=== PATIENT | female | born 1995 | race American Indian/Alaskan Native ===

== ENCOUNTER 2021-06-11 14:53 | Emergency (ER) | payer MEDICAID, OTHER ==
[2021-06-11 15:27] VITALS: BP 122/41
[2021-06-11] MEDS ORDERED: FAMOTIDINE 20 MG/2 ML INJ IV ONE (15:37)
[2021-06-11] MEDS ORDERED: MORPHINE 2 MG/1 ML INJ IV ONE (15:37)
[2021-06-11] MEDS ORDERED: ONDANSETRON 4 MG/2 ML INJ IV ONE (15:37)
[2021-06-11] MEDS ORDERED: SODIUM CHLORIDE 0.9% 1000 ML 1,000 ML IV ONE (15:38)
[2021-06-11 16:17] LABS: Basophils % (Auto) 0.3 % (0.0-1.8); Hematocrit 37.4 % (30.3-42.9); Hemoglobin 12.5 gm/dl (10.1-14.3); Lymphocytes # (Auto) 1.3 K/mm3 (1.2-5.4); Lymphocytes % (Auto) 10.7 % (13.4-35.0); Mean Corpuscular HGB Conc 33 % (30-34); Mean Corpuscular Volume 97 fl (79-97); Monocytes # (Auto) 0.3 K/mm3 (0.0-0.8); Monocytes % (Auto) 2.7 % (0.0-7.3); Platelet Count 251 K/mm3 (140-440); Red Blood Count 3.86 M/mm3 (3.65-5.03); Red Cell Distribution Width 12.8 % (13.2-15.2)
[2021-06-11 16:27] LABS: Alanine Aminotransferase 27 units/L (7-56); Albumin 4.7 g/dL (3.9-5); Blood Urea Nitrogen 15 mg/dL (7-17); Calcium 9.4 mg/dL (8.4-10.2); Hemolysis Index 10
[2021-06-11 16:32] LABS: BUN/Creatinine Ratio 25
[2021-06-11] MEDS ORDERED: KETOROLAC 30 MG/1 ML INJ IV ONE (16:53)
[2021-06-11] MEDS ORDERED: DICYCLOMINE 20 MG/2 ML INJ IM ONE (17:03)
--- NOTE | 2021-06-11 18:01 | Cat Scan Report ---
CT ABDOMEN AND PELVIS WITH CONTRAST INDICATION / CLINICAL INFORMATION: abdominal pain, N/V. TECHNIQUE: Axial CT images were obtained through the abdomen and pelvis after 100 cc of Omnipaque [address] scans at this location are performed using CT dose reduction for ALARA by means of automated exposure control. COMPARISON: 07/12/2018 FINDINGS: LOWER CHEST: No significant abnormality. AORTA / ARTERIES: No significant abnormality. IVC / VEINS: No significant abnormality. LYMPH NODES: No significant adenopathy. COLON: No significant abnormality. APPENDIX: No significant abnormality. STOMACH / SMALL BOWEL: No significant abnormality. PERITONEUM: Trace free fluid within the pelvis, likely physiologic, given patient's age. No free air. No fluid collection. LIVER: Mild fatty infiltration about the falciform ligament. Periportal edema likely related to fluid resuscitation. GALLBLADDER: No significant abnormality. BILE DUCTS: No significant abnormality. PANCREAS: No significant abnormality. SPLEEN: No significant abnormality. ADRENALS: No significant abnormality. RIGHT KIDNEY / URETER: No significant abnormality. LEFT KIDNEY / URETER: No significant abnormality. URINARY BLADDER: No significant abnormality. REPRODUCTIVE ORGANS: No significant abnormality. SKELETAL SYSTEM: No significant abnormality. ADDITIONAL FINDINGS: None. IMPRESSION: 1. No CT findings to explain symptomatology. Signer Name: Aydin Garibay DO Signed: 06/11/2021 5:57 PM Workstation Name: [id number]
--- NOTE | 2021-06-11 20:16 | Emergency Department Report ---
ED N/V/D HPI - General Chief complaint: Nausea/Vomiting/Diarrhea Stated complaint: ABD PAIN/VOMITING/DIARRHEA Source: patient Mode of arrival: Ambulatory Limitations: No Limitations - History of Present Illness Initial comments: Patient is a 25-year-old -[place] female with no past medical history who presents to the ED with complaint of acute onset persistent intractable nausea and vomiting, diffuse abdominal pain for the last 3 days, worse in the last 12 hours. Patient states that she has not been able to keep anything down in the last 12 hours because of intractable nausea and vomiting. Patient states that no one else at home is had similar symptoms. Patient denies dizziness, syncope, chest pain, hematemesis, hematochezia, diarrhea, dysuria, urinary frequency and urgency, shortness of breath, headache, sore throat, vaginal bleeding or vaginal discharge. MD complaint: nausea, vomiting, abdominal pain -: Sudden, days(s) (3) Description of Vomiting: food contents, watery, bilious Associated Abdominal Pain: Yes (Diffuse) Location: diffuse Radiation: none Severity: severe Pain Scale: 7 Quality: cramping, aching, sharp Consistency: constant Improves with: none Worsens with: vomiting Context: possible food poisoning Associated Symptoms: denies other symptoms, loss of appetite, malaise, nausea/vomiting. denies: myalgias, chest pain, cough, diaphoresis, fever/chills, headaches, rash, dysuria, shortness of breath, syncope, weakness, other - Related Data Previous Rx's Medication Instructions Recorded Last Taken Type Dicyclomine [Bentyl] 10 mg PO BID #20 capsule 07/12/18 Unknown Rx Famotidine [Pepcid] 10 mg PO BID #30 tablet 07/12/18 Unknown Rx Ondansetron [Zofran ODT TAB] 8 mg PO Q12HR #30 tab.rapdis 07/12/18 Unknown Rx Dicyclomine [Bentyl] 20 mg PO Q6H PRN #30 tablet 06/11/21 Unknown Rx Famotidine [Pepcid] 20 mg PO BID #30 tablet 06/11/21 Unknown Rx Ondansetron [Zofran Odt] 4 mg PO Q6HR PRN #20 tab.rapdis 06/11/21 Unknown Rx Allergies Allergy/AdvReac Type Severity Reaction Status Date / Time No Known Allergies Allergy Verified 07/12/18 11:51 ED Review of Systems ROS: Stated complaint: ABD PAIN/VOMITING/DIARRHEA Other details as noted in HPI Constitutional: denies: chills, fever Eyes: denies: eye pain, eye discharge, vision change ENT: denies: ear pain, throat pain Respiratory: denies: cough, shortness of breath, wheezing Cardiovascular: denies: chest pain, palpitations Endocrine: no symptoms reported Gastrointestinal: abdominal pain, nausea, vomiting. denies: diarrhea Genitourinary: denies: urgency, dysuria, discharge Musculoskeletal: denies: back pain, joint swelling, arthralgia Skin: denies: rash, lesions Neurological: denies: headache, weakness, paresthesias Psychiatric: denies: anxiety, depression Hematological/Lymphatic: denies: easy bleeding, easy bruising ED Past Medical Hx - Past Medical History Hx Asthma: Yes - Social History Smoking Status: Current Every Day Smoker Substance Use Type: Alcohol - Medications Home Medications: Home Medications Medication Instructions Recorded Confirmed Last Taken Type Dicyclomine [Bentyl] 10 mg PO BID #20 capsule 07/12/18 Unknown Rx Famotidine [Pepcid] 10 mg PO BID #30 tablet 07/12/18 Unknown Rx Ondansetron [Zofran ODT TAB] 8 mg PO Q12HR #30 tab.rapdis 07/12/18 Unknown Rx Dicyclomine [Bentyl] 20 mg PO Q6H PRN #30 tablet 06/11/21 Unknown Rx Famotidine [Pepcid] 20 mg PO BID #30 tablet 06/11/21 Unknown Rx Ondansetron [Zofran Odt] 4 mg PO Q6HR PRN #20 tab.rapdis 06/11/21 Unknown Rx ED Physical Exam - General Limitations: No Limitations General appearance: alert, in no apparent distress - Head Head exam: Present: atraumatic, normocephalic, normal inspection - Eye Eye exam: Present: normal appearance, PERRL, EOMI Pupils: Present: normal accommodation - ENT ENT exam: Present: normal exam, normal orophraynx, mucous membranes moist, TM's normal bilaterally, normal external ear exam - Neck Neck exam: Present: normal inspection, full ROM - Respiratory Respiratory exam: Present: normal lung sounds bilaterally. Absent: respiratory distress, wheezes, rales, stridor, chest wall tenderness, accessory muscle use - Cardiovascular Cardiovascular Exam: Present: regular rate, normal rhythm, normal heart sounds. Absent: systolic murmur, diastolic murmur, rubs, gallop - GI/Abdominal GI/Abdominal exam: Present: soft, tenderness (Palpable diffuse abdominal tenderness), normal bowel sounds, hyperactive bowel sounds. Absent: guarding, rebound - Extremities Exam Extremities exam: Present: normal inspection, full ROM, normal capillary refill - Back Exam Back exam: Present: normal inspection, full ROM. Absent: tenderness, CVA tenderness (R), CVA tenderness (L), muscle spasm, paraspinal tenderness, vertebral tenderness - Neurological Exam Neurological exam: Present: alert, oriented X3, CN II-XII intact, normal gait, reflexes normal - Psychiatric Psychiatric exam: Present: normal affect, normal mood - Skin Skin exam: Present: warm, dry, intact, normal color. Absent: rash ED Course Vital Signs 06/11/21 15:26 Temperature 98.3 F Pulse Rate 88 Respiratory 20 Rate Blood Pressure 122/41 [Right] O2 Sat by Pulse 100 Oximetry ED Medical Decision Making - Lab Data Result diagrams: 06/11/21 15:46 06/11/21 15:46 - Radiology Data [facility] [address] [place] [address] Cat Scan Report Signed Patient: PAULETTE JOHNSON MR#: [id number] : 1995 Acct:[id number] Age/Sex: 25 / F ADM Date: 06/11/21 Loc: ED Attending Dr: Ordering Physician: JC JOYCE Date of Service: 06/11/21 Procedure(s): CT abdomen pelvis w con Accession Number(s): [id number] cc: JC JOYCE CT ABDOMEN AND PELVIS WITH CONTRAST INDICATION / CLINICAL INFORMATION: abdominal pain, N/V. TECHNIQUE: Axial CT images were obtained through the abdomen and pelvis after 100 cc of Omnipaque [address] scans at this location are performed using CT dose reduction for ALARA by means of automated exposure control. COMPARISON: 07/12/2018 FINDINGS: LOWER CHEST: No significant abnormality. AORTA / ARTERIES: No significant abnormality. IVC / VEINS: No significant abnormality. LYMPH NODES: No significant adenopathy. COLON: No significant abnormality. APPENDIX: No significant abnormality. STOMACH / SMALL BOWEL: No significant abnormality. PERITONEUM: Trace free fluid within the pelvis, likely physiologic, given patient's age. No free air. No fluid collection. LIVER: Mild fatty infiltration about the falciform ligament. Periportal edema likely related to fluid resuscitation. GALLBLADDER: No significant abnormality. BILE DUCTS: No significant abnormality. PANCREAS: No significant abnormality. SPLEEN: No significant abnormality. ADRENALS: No significant abnormality. RIGHT KIDNEY / URETER: No significant abnormality. LEFT KIDNEY / URETER: No significant abnormality. URINARY BLADDER: No significant abnormality. REPRODUCTIVE ORGANS: No significant abnormality. SKELETAL SYSTEM: No significant abnormality. ADDITIONAL FINDINGS: None. IMPRESSION: 1. No CT findings to explain symptomatology. Signer Name: Aydin Garibay DO Signed: 06/11/2021 5:57 PM Workstation Name: [id number] Transcribed By: ESSENCE Dictated By: AYDIN GARIBAY DO Electronically Authenticated By: AYDIN GARIBAY DO Signed Date/Time: 06/11/211756 DD/ 50 TD/TT: - Medical Decision Making This is a 25-year-old -[place] female with no past medical history who presents to the ED with complaint of acute onset persistent intractable nausea and vomiting, diffuse abdominal pain for the last 3 days, worse in the last 12 hours. Patient states that she has not been able to keep anything down in the last 12 hours because of intractable nausea and vomiting. Patient states that no one else at home is had similar symptoms. In the ED, patient is alert and oriented x3 and is not in any distress. Patient is hemodynamically stable. Patient was treated for nausea and vomiting and pain, also given the normal saline 1 L IV bolus x1 as well as antacids. Lab test results were reviewed and showed acute leukocytosis of 12,000 likely due to intractable nausea and vomiting. The rest of the lab test results are nonactionable. Abdomen pelvis CT scan with contrast showed no acute abnormalities. On reevaluation, patient's nausea and vomiting resolved medication and patient passed oral fluid challenge in the ED. Patient was discharged home on medications and advised to maintain a clear liquid diet for 1224 hrs., take medication as advised and follow-up with her primary care physician in 3 to 5 days for reevaluation or return to the ED immediately if symptoms get worse. - Differential Diagnosis Gastroenteritis; GERD; gastritis; appendicitis; UTI; dehydration Critical care attestation.: If time is entered above; I have spent that time in minutes in the direct care of this critically ill patient, excluding procedure time. ED Disposition Clinical Impression: Nausea and vomiting in adult patient, Viral gastroenteritis, Abdominal pain in female Disposition: HOME / SELF CARE / HOMELESS Is pt being admited?: No Does the pt Need Aspirin: No Condition: Stable Instructions: Viral Gastroenteritis, Adult, [id number], Nausea and Vomiting, Adult, [id number], Abdominal Pain, Adult, [id number] Additional Instructions: All lab test results are reviewed and are all nonactionable. Abdomen pelvis CT scan with contrast showed no acute abnormalities. Therefore maintain a clear liquid diet for 12 to 24 hours, drink plenty of fluids and follow-up with your primary care physician in 7 to 10 days for reevaluation. Return to the ED immediately if symptoms get worse. Prescriptions: Dicyclomine [Bentyl] 20 mg PO Q6H PRN #30 tablet PRN Reason: abdominal pain Famotidine [Pepcid] 20 mg PO BID #30 tablet Ondansetron [Zofran Odt] 4 mg PO Q6HR PRN #20 tab.rapdis PRN Reason: Nausea Referrals: [facility] [Provider Group] - 7-10 days Time of Disposition: 20:15 Print Language: COMORAN
[2021-06-11 20:35] LABS: Bilirubin,Urine NEG (Negative); Blood,Urine NEG (Negative); Color,Urine Yellow (Yellow); Mucus,Urine 2+ /HPF; Urobilinogen,Urine < 2.0 mg/dL (<2.0)
== END 2021-06-12 09:11 | disposition home or self-care (01) ==
LOC: ED 14:53
DX: A08.4 Viral intestinal infection, unspecified (principal); R11.2 Nausea with vomiting, unspecified; R10.9 Unspecified abdominal pain; F17.200 Nicotine dependence, unspecified, uncomplicated; F10.20 Alcohol dependence, uncomplicated; J45.909 Unspecified asthma, uncomplicated
CPT/HCPCS: 36415; 74177; 80053; 81001; 83690; 84703; 85025; 96361; 96372; 96374; 96375; 99284; J0500; J2270; J2405; J3490; J7030; Q9967; Q0162